=== PATIENT | female | born 1945 | race Caucasian/White ===

== ENCOUNTER 2018-06-23 13:19 | Inpatient (IN) ==
[2018-06-23] MEDS ORDERED: Ampicillin/Sulbactam Inj 1,500 MG in Sodium Chloride 0.9% Inj 100 ML IV.SIG ONE (15:32)
[2018-06-23] MEDS ORDERED: Tetanus/Diphtheria Toxoid Adult Vaccine Inj 0.5 ML Vial IM ONE (15:32)
--- NOTE | 2018-06-23 16:08 | ED ---
HPI General Chief Complaint: Animal Bite Stated Complaint: Animal Bite Complaint Time Seen by Provider: 06/23/18 15:31 Source: patient Mode of arrival: ambulatory Limitations: no limitations History of Present Illness MD complaint: Reports animal bite Onset (ago): day(s) (1) Animal: cat Description of animal: household pet Mechanism: bite Right: hand Pain description: Reports dull and constant Severity scale (1-10): 8 Context: Reports unprovoked Associated symptoms: Reports erythema and other (Inability to extend her fingers ); Denies fever and chills Treatments prior to arrival: Reports antibiotic ointment and other (Peroxide) Related Data Patient tetanus UTD: No Allergies Allergy/AdvReac Type Severity Reaction Status Date / Time adhesive Allergy Severe pt stated Unverified 02/02/17 19:02 she had redness and irritation with bandaids Sulfa (Sulfonamide Allergy Severe hives Unverified 02/02/17 19:02 Antibiotics) Review of Systems ROS: all other systems reviewed are negative [facility] Social History Social History Recent Travel in [facility] within the Last 8 Weeks: No Recent Out of Country Travel within the Last 8 Weeks: No Exam Const General: cooperative, healthy appearing and comfortable Orientation: alert, awake and oriented x3 HENMT Head: normal to inspection, normocephalic and atraumatic Eyes Alignment and Position: alignment normal Conjunctivae: conjunctivae normal Sclera: sclerae normal EOM: EOM intact bilaterally Neck Neck: normal visual inspection and full ROM Chest Chest: normal inspection of the chest and normal palpation of entire chest wall Resp Effort & Inspection: normal respiratory effort and able to speak in complete sentences Cardio Rate: regular rate Rhythm: regular rhythm Back/Spine/Pelvis Cervical Spine: cervical ROM normal Thoracic/Lumbar Spine: thoraco-lumbar ROM normal Skin General: erythema (Erythema on the dorsal aspect of the right hand ) Trauma: puncture (2 puncture wounds on the dorsal aspect of the right hand near the base of the right index finger) Neuro General: alert, awake, oriented x3, moves all extremities and CN's II-XI intact bilaterally Extrem Right upper extremity: hand Details: abnormal to inspection, normal capillary refill, neuromotor exam abnormal, tenderness, warmth, swelling, ecchymosis and puncture wound; no crepitus Psych Appearance: grossly normal Mental Status: mental status grossly normal Speech and Movement: speech and movement normal Mood: congruent mood Affect: normal affect Attitude: cooperative Thought Process: normal Thought Content: normal Judgment: judgment good Course Initial Documented Vital Signs Temperature 98.6 F 06/23/18 13:41 Pulse Rate 91 H 06/23/18 13:41 Respiratory Rate 17 06/23/18 13:41 Blood Pressure 147/71 H 06/23/18 13:41 Pulse Oximetry 99 06/23/18 13:41 Last Documented Vital Signs Temperature 98.6 F 06/23/18 13:41 Pulse Rate 91 H 06/23/18 13:41 Respiratory Rate 17 06/23/18 13:41 Blood Pressure 147/71 H 06/23/18 13:41 Pulse Oximetry 99 06/23/18 13:41 Medical Decision Making MDM Narrative Medical decision making narrative: This patient presents following a cat bite to her right hand. The Bite occurred about 2:30 PM. She started having pain, swelling, redness and warmth of her hand about 5 hours later. Her symptoms have been getting progressively worse since that time. On exam she has erythema, warmth, swelling and tenderness on the dorsal aspect of the right hand. There are 2 associated puncture wounds. She has difficulty extending her index finger. Her tetanus has been updated. She is being given a dose of IV Unasyn. I have consulted hand surgery and he plans to take her to the operating room for washout. Medical Screen Exam Complete: Yes Emergency Medical Condition: Yes Differential Diagnosis Differential Diagnosis: Differential diagnosis of animal bite includes but is not limited to wound, wound infection, retained foreign body, open fracture, sepsis, rabies. Lab Data Lab results reviewed: Yes I reviewed the patient's lab results. Result diagrams: 06/23/18 16:00 06/23/18 16:00 Lab Results 06/23/18 06/23/18 Range/Units 16:00 16:00 WBC 12.7 H (4.0-11.0) th/mm3 RBC 4.12 (4.00-5.30) mil/mm3 Hgb 13.3 (11.6-15.3) gm/dL Hct 38.0 (35.0-46.0) % MCV 92.1 (80.0-100.0) fL MCH 32.2 (27.0-34.0) pg MCHC 34.9 (32.0-36.0) % RDW 14.4 (11.6-17.2) % Plt Count 344 (150-450) th/mm3 MPV 7.8 (7.0-11.0) fL Neut % (Auto) 68.3 (16.0-70.0) % Lymph % (Auto) 20.4 (9.0-44.0) % [place] % (Auto) 9.9 H (0.0-8.0) % Eos % (Auto) 0.9 (0.0-4.0) % Baso % (Auto) 0.5 (0.0-2.0) % Neut # (Auto) 8.7 H (1.8-7.7) th/mm3 Lymph # (Auto) 2.6 (1.0-4.8) th/mm3 [place] # (Auto) 1.2 H (0.0-0.9) th/mm3 Eos # (Auto) 0.1 (0.0-0.4) th/mm3 Baso # (Auto) 0.1 (0.0-0.2) th/mm3 WBC Differential . Differential Comment Auto diff final Sodium 141 (136-145) meq/L Potassium 4.1 (3.5-5.1) meq/L Chloride 105 (98-107) meq/L Carbon Dioxide 29.9 (21.0-32.0) meq/L Anion Gap 6 (5-15) meq/L BUN 16 (7-18) mg/dL Creatinine 0.84 (0.50-1.00) mg/dL Estimated GFR 67 L (>89) mL/min Random Glucose 97 (74-106) mg/dL Calcium 8.6 (8.5-10.1) mg/dL Discharge Plan Discharge Disposition Patient Disposition: ED Admit(ED Internal Use Only) Discharge Order Discharge Orders: ED Use Only Admit Order (Routine); Ordered 06/23/18 Ordered By: Rose Marie Batista Discharge Details Diagnosis: Cellulitis, Cat bite Physicians Team ED Provider: Rose Marie Batista Primary Care Provider: Yolanda Lira Other Providers: Ja David Status ED Status: With Doctor
[2018-06-23 16:22] LABS: Baso # (Auto) 0.1 th/mm3 (0.0-0.2); Baso % (Auto) 0.5 % (0.0-2.0); Eos # (Auto) 0.1 th/mm3 (0.0-0.4); Eos % (Auto) 0.9 % (0.0-4.0); Hemoglobin 13.3 gm/dL (11.6-15.3); Lymph # (Auto) 2.6 th/mm3 (1.0-4.8); Lymph % (Auto) 20.4 % (9.0-44.0); Mean Corpuscular HGB Conc 34.9 % (32.0-36.0); Mean Corpuscular Hemoglobin 32.2 pg (27.0-34.0); Mean Corpuscular Volume 92.1 fL (80.0-100.0); Mean Platelet Volume 7.8 fL (7.0-11.0); Mono # (Auto) 1.2 th/mm3 (0.0-0.9); Mono % (Auto) 9.9 % (0.0-8.0); Neut # (Auto) 8.7 th/mm3 (1.8-7.7); Neut % (Auto) 68.3 % (16.0-70.0); Platelet Count 344 th/mm3 (150-450); Red Blood Count 4.12 mil/mm3 (4.00-5.30); Red Cell Distribution Width 14.4 % (11.6-17.2); White Blood Count 12.7 th/mm3 (4.0-11.0)
[2018-06-23 16:44] LABS: Calcium 8.6 mg/dL (8.5-10.1); Carbon Dioxide 29.9 meq/L (21.0-32.0); Potassium 4.1 meq/L (3.5-5.1)
--- NOTE | 2018-06-23 17:14 | MB ---
cc: Ja David MD DATE: 06/23/2018 REASON FOR CONSULTATION: Cat bite to right hand. HISTORY OF PRESENT ILLNESS: The patient is a 72-year-old right-hand dominant female who presented to the ED with complaints of cat bite to the dorsal aspect of the right hand yesterday. The patient states she was bitten by her own cat yesterday. She applied hydrogen peroxide. She presented to the ED with complaints of worsening symptoms involving the right hand with pain, swelling, and redness. The patient also complains of difficulty with range of motion of the fingers. Denies any fever. Denies any drainage. PAST MEDICAL AND SURGICAL HISTORY: Reviewed. PHYSICAL EXAMINATION: GENERAL: The patient is alert and oriented x3. EXTREMITIES: Examination of right hand reveals swelling over the dorsal aspect of the hand with erythema extending to the distal aspect of the wrist. There are 2 bite wounds over the dorsal aspect of the hand, corresponding to the index finger extensor tendon and the first webspace. Tenderness is noted over the region. No drainage noted over the region. Scabbing of the wound noted. Range of motion of the index finger is limited and painful. Finger extension of the middle, ring, and little fingers is also associated with pain. She is unable to make a full fist. Wrist range of motion is limited at terminal degrees. She has intact sensation distally. She has intact distal circulation. LABORATORY DATA: Her lab work was reviewed. She has white count of 12.7, neutrophil shift of 68%. ASSESSMENT: This is a 72-year-old female with a cat bite to the dorsal aspect of the right hand with cellulitis. PLAN: Will be to open up the wounds at bedside. The part was sterilely prepped and draped, and the bite wounds were opened up and washed with hydrogen peroxide, normal saline. Dry dressing was applied. The patient will be admitted for IV antibiotics, and hand surgery will follow up tomorrow. The patient was informed that if there is no improvement in symptoms, she will be a candidate for a formal incision and drainage in the OR setting. Ja David MD SE/olivia , 04:41 PM , 04:49 PM
[2018-06-23] MEDS ORDERED: Bisacodyl 10 MG Supp RECTAL PRN (17:34)
[2018-06-23] MEDS ORDERED: Acetaminophen 325 MG Tablet PO PRN (17:34)
[2018-06-23] MEDS: Ampicillin/Sulbactam Inj 3 GM in Sodium Chloride 0.9% Inj 100 ML IV.SIG SCH (23:03)
--- NOTE | 2018-06-24 04:35 | P.HPIM ---
History of Present Illness Service: [facility] Primary Care Physician: Yolanda Lira Chief Complaint: Cat bite History of Present Illness: 72-year-old female with a history of CAD GERD and depression presented to the ED after having reported a Bite to her right hand yesterday. She states she was bitten by her cat yesterday states the pain prior to coming in was 8/10, constant, dull, ache, worse with movement with radiation up her hand and unable to move her fingers. She states prior to arrival she did put an antibiotic ointment on and peroxide.. She denies any chest pain, fever, chills, shortness of breath. Patient was seen by hand surgery in the ED who did an I&D at the bedside. Wound was opened up and washed with hydrogen peroxide and normal saline and a dry dressing was applied. She states since then she can move her fingers more with less pain. Per hand surgery... If symptoms do not improve patient will most likely go to the OR for a formal I&D. Inpatient Certification Inpatient Certification: I certify that the inpatient services were ordered in accordance with Medicare regulations governing the order. This includes certification that hospital inpatient services are reasonable and necessary and in the case of services not specified as inpatient-only under 42 CFR 419.22(n), that they are appropriately provided as inpatient services in accordance to with the 2-midnight benchmark under 43 CFR 412.3(e) Estimated Total Length of Stay (Days): 3 Plans for Post Hospital Care: Home [facility] Medical History Medical History FHx: cholecystectomy (Acute) History of hysterectomy (Acute) Hyperlipidemia (Acute) Hypertension (Acute) Surgical History Surgical History Hx of tonsillectomy (Acute) Family History Family History Father Heart disease Social History Social History Substance History: No History of Abuse Second Hand Smoke Exposure: No Smoking Status: Never smoker How Often Do You Have a Drink Containing Alcohol: Monthly or less Recent Travel in [facility] within the Last 8 Weeks: No Recent Out of Country Travel within the Last 8 Weeks: No Immunization History Tetanus Immunization: Unsure Medications and Allergies Allergies Allergy/AdvReac Type Severity Reaction Status Date / Time adhesive Allergy Severe pt stated Verified 06/23/18 18:26 she had redness and irritation with bandaids Sulfa (Sulfonamide Allergy Severe hives Verified 06/23/18 18:26 Antibiotics) Home Medications Medication Instructions Recorded Confirmed Type amlodipine 5 mg PO DAILY 06/23/18 06/23/18 History atorvastatin 40 mg PO QPM 06/23/18 06/23/18 History bupropion HCl 150 mg PO QAM 06/23/18 06/23/18 History buspirone 10 mg PO BID 06/23/18 06/23/18 History clopidogrel 75 mg PO DAILY 06/23/18 06/23/18 History pantoprazole 40 mg PO DAILY 06/23/18 06/23/18 History Active Medications: Active Medications Acetaminophen (Tylenol) 650 mg PO Q4H PRN PRN Reason: Headache, fever, pain 1-4 Hydrocodone Bitart/Acetaminophen ([place] 5/325) 1 tab PO Q4H PRN PRN Reason: PAIN SCALE 1 TO 10 Last Admin: 06/23/18 21:11 Dose: 1 tab Al Hydroxide/Mg Hydroxide (Milk Of Magnesia Liq) 30 ml PO Q12H PRN PRN Reason: Mild Constipation Bisacodyl (Dulcolax Supp) 10 mg RECTAL DAILY PRN PRN Reason: SEVERE CONSITIPATION Ampicillin Sodium/Sulbactam (Sodium 3 gm/ Sodium Chloride) 100 mls @ 200 mls/ hr IV.SIG Q6H [facility] Last Infusion: 06/23/18 23:33 Dose: Infused Lactulose (Lactulose Liq) 30 ml PO DAILY PRN PRN Reason: SEVERE CONSITIPATION Ondansetron HCl (Zofran Inj) 4 mg IV.PUSH Q6H PRN PRN Reason: NAUSEA OR VOMITING Sennosides (Senokot) 17.2 mg PO Q12H PRN PRN Reason: Moderate Constipation Sodium Chloride (Ns Flush) 2 ml IV.FLUSH BID [facility] Last Admin: 06/23/18 23:04 Dose: 2 ml Sodium Chloride (Ns Flush) 2 ml IV.FLUSH PRN PRN PRN Reason: FLUSH AFTER USING IV ACCESS Physical Exam Vital signs: Last Vital Signs Temp 98.3 F 06/24/18 00:00 Pulse 76 06/24/18 00:00 Resp 18 06/24/18 00:00 BP 101/55 L 06/24/18 00:00 Pulse Ox 94 L 06/24/18 00:00 Intake & Output 06/21/18 06/22/18 06/23/18 06/24/18 06:59 06:59 06:59 06:59 Intake Total 100 / 100 Balance 100 / 100 Weight 53.5 kg Narrative: GENERAL: Well-nourished patient in no acute distress SKIN: Warm and dry. erythema to dorsal of right hand, minimal drainage EYES: No scleral icterus. No injection or drainage. NECK: Supple, trachea midline. No JVD or lymphadenopathy. CARDIOVASCULAR: Regular rate and rhythm without murmurs, gallops, or rubs. RESPIRATORY: Breath sounds equal bilaterally. No accessory muscle use. GASTROINTESTINAL: Abdomen soft, non-tender, nondistended. MUSCULOSKELETAL: No cyanosis, or edema. Results Labs CBC & Chem 7: 06/23/18 16:00 06/23/18 16:00 Caprini VTE Risk Assessment Caprini VTE Risk Assessment: No/Low Risk (score <= 1) Caprini Risk Assessment Model: Point Value = 1 Point Value = 2 Point Value = 3 Point Value = 5 Age 41-60 Minor surgery BMI > 25 kg/m2 Swollen legs Varicose veins or History of unexplained or recurrent spontaneous Oral contraceptives or hormone replacement Sepsis (< 1 month) Serious lung disease, including pneumonia (< 1 month) Abnormal pulmonary function Acute myocardial infarction Congestive heart failure (< 1 month) History of inflammatory bowel disease Medical patient at bed rest Age 61-74 Arthroscopic surgery Major open surgery (> 45 min) Laparoscopic surgery (> 45 min) Malignancy Confined to bed (> 72 hours) Immobilizing plaster cast Central venous access Age >= 75 History of VTE Family history of VTE Factor V Leiden Prothrombin [id number] Lupus anticoagulant Anticardiolipin antibodies Elevated serum homocysteine Heparin-induced thrombocytopenia Other congenital or acquired thrombophilia Stroke (< 1 month) Elective arthroplasty Hip, pelvis, or leg fracture Acute spinal cord injury (< 1 month) Prophylaxis Regimen: Total Risk Factor Score Risk Level Prophylaxis Regimen 0-1 Low Early ambulation 2 Moderate Order ONE of the following: *Sequential Compression Device (SCD) *Heparin 5000 units SQ BID 3-4 Higher Order ONE of the following medications: *Heparin 5000 units SQ TID *Enoxaparin/Lovenox 40 mg SQ daily (WT < 150 kg, CrCl > 30 mL/min) *Enoxaparin/Lovenox 30 mg SQ daily (WT < 150 kg, CrCl > 10-29 mL/min) *Enoxaparin/Lovenox 30 mg SQ BID (WT < 150 kg, CrCl > 30 mL/min) AND/OR *Sequential Compression Device (SCD) 5 or more Highest Order ONE of the following medications: *Heparin 5000 units SQ TID (Preferred with Epidurals) *Enoxaparin/Lovenox 40 mg SQ daily (WT < 150 kg, CrCl > 30 mL/min) *Enoxaparin/Lovenox 30 mg SQ daily (WT < 150 kg, CrCl > 10-29 mL/min) *Enoxaparin/Lovenox 30 mg SQ BID (WT < 150 kg, CrCl > 30 mL/min) AND *Sequential Compression Device (SCD) Assessment and Plan Plan 72-year-old female with a history of hypertension, hyperlipidemia, CAD, GERD, and depression presented to the ED after having reported a Bite to her right hand yesterday. Cellulitis, due to a Cat bite, right hand -IV antibiotics Unasyn -Pain management with p.o. [place] -Hand surgery is following -Blood cultures pending Hypertension, chronic -Resume home medications amlodipine, monitor vitals Other chronic medical conditions Hyperlipidemia, depression and gerd -Resume home medications -Cardiac diet DVT prophylaxis: SCDs H&P: Quality VTE Deep Vein Thrombosis/Pulmonary Embolism Present on Admission: No
[2018-06-24] MEDS: Ampicillin/Sulbactam Inj 3 GM in Sodium Chloride 0.9% Inj 100 ML IV.SIG SCH ×4 (05:03→23:07)
[2018-06-24 06:03] LABS: Baso # (Auto) 0.1 th/mm3 (0.0-0.2); Baso % (Auto) 0.6 % (0.0-2.0); Eos # (Auto) 0.2 th/mm3 (0.0-0.4); Eos % (Auto) 1.9 % (0.0-4.0); Hematocrit 36.4 % (35.0-46.0); Hemoglobin 12.2 gm/dL (11.6-15.3); Lymph # (Auto) 3.1 th/mm3 (1.0-4.8); Lymph % (Auto) 31.4 % (9.0-44.0); Mean Corpuscular HGB Conc 33.4 % (32.0-36.0); Mean Corpuscular Hemoglobin 30.8 pg (27.0-34.0); Mean Corpuscular Volume 92.1 fL (80.0-100.0); Mono # (Auto) 0.8 th/mm3 (0.0-0.9); Neut # (Auto) 5.8 th/mm3 (1.8-7.7); Neut % (Auto) 58.1 % (16.0-70.0); Platelet Count 341 th/mm3 (150-450); Red Blood Count 3.96 mil/mm3 (4.00-5.30); Red Cell Distribution Width 14.2 % (11.6-17.2)
[2018-06-24 06:23] LABS: Calcium 8.5 mg/dL (8.5-10.1); Carbon Dioxide 28.7 meq/L (21.0-32.0); Potassium 4.1 meq/L (3.5-5.1)
[2018-06-24] MEDS: amLODIPine 5 MG Tablet PO SCH (09:05)
[2018-06-24] MEDS: buPROPion 150 MG 12 HR Tablet PO SCH (09:06)
--- NOTE | 2018-06-24 12:15 | P.PNIM ---
Subjective Interval history: Follow-up visit cat bite, cellulitis Right Hand. Patient seen and examined today. at bedside. Reports she is doing okay. Denies pain and discomfort. Denies SOB/ dyspnea. Denies chest pain, palpitations, headaches, dizziness. Denies fevers, chills, n/v/d. Denies dysuria. Denies any paresthesia. Physical Exam Vital signs: Vital Signs 06/23/18 13:41 06/23/18 18:35 06/23/18 20:00 Temperature 98.6 F 97.9 F Pulse Rate 91 H 82 79 Respiratory Rate 17 16 18 Blood Pressure 147/71 H 144/77 H 128/74 Pulse Oximetry 99 98 95 06/24/18 00:00 06/24/18 08:00 Temperature 98.3 F 98.5 F Pulse Rate 76 76 Respiratory Rate 18 17 Blood Pressure 101/55 L 123/67 Pulse Oximetry 94 L 95 Intake & Output 06/23/18 06/24/18 06/24/18 18:59 06:59 18:59 Intake Total 200 / 200 100 / 100 Balance 200 / 200 100 / 100 Weight 51.71 kg 52.6 kg Intake: IV 200 / 200 100 / 100 Unasyn Inj 3 GM In NS Inj 100 200 / 200 ML @ 200 mls/hr IV.SIG Q6H [facility] Rx#:[id number] Other: # Voids 3 Date of Last Bowel Movement 06/22/18 Weight On Admission 53.5 kg Results - Labs CBC & Chem 7: 06/24/18 05:01 06/24/18 05:01 Laboratory Results - last 24 hr 06/23/18 06/23/18 06/24/18 16:00 16:00 05:01 WBC 12.7 H 10.0 RBC 4.12 3.96 L Hgb 13.3 12.2 Hct 38.0 36.4 MCV 92.1 92.1 MCH 32.2 30.8 MCHC 34.9 33.4 RDW 14.4 14.2 Plt Count 344 341 MPV 7.8 8.0 Neut % (Auto) 68.3 58.1 Lymph % (Auto) 20.4 31.4 [place] % (Auto) 9.9 H 8.0 Eos % (Auto) 0.9 1.9 Baso % (Auto) 0.5 0.6 Neut # (Auto) 8.7 H 5.8 Lymph # (Auto) 2.6 3.1 [place] # (Auto) 1.2 H 0.8 Eos # (Auto) 0.1 0.2 Baso # (Auto) 0.1 0.1 WBC Differential . . Differential Comment Auto diff final Auto diff final Sodium 141 Potassium 4.1 Chloride 105 Carbon Dioxide 29.9 Anion Gap 6 BUN 16 Creatinine 0.84 Estimated GFR 67 L Random Glucose 97 Calcium 8.6 06/24/18 05:01 WBC RBC Hgb Hct MCV MCH MCHC RDW Plt Count MPV Neut % (Auto) Lymph % (Auto) [place] % (Auto) Eos % (Auto) Baso % (Auto) Neut # (Auto) Lymph # (Auto) [place] # (Auto) Eos # (Auto) Baso # (Auto) WBC Differential Differential Comment Sodium 141 Potassium 4.1 Chloride 106 Carbon Dioxide 28.7 Anion Gap 6 BUN 19 H Creatinine 0.79 Estimated GFR 72 L Random Glucose 96 Calcium 8.5 Microbiology 06/23/18 15:55 Blood - Peripheral Aerobic Blood Culture - Preliminary No growth in 1 day 06/23/18 15:55 Blood - Peripheral Anaerobic Blood Culture - Preliminary No growth in 1 day 06/23/18 16:00 Blood - Peripheral Aerobic Blood Culture - Preliminary No growth in 1 day 06/23/18 16:00 Blood - Peripheral Anaerobic Blood Culture - Preliminary No growth in 1 day Assessment and Plan - Plan 72-year-old female with a history of hypertension, hyperlipidemia, CAD, GERD, and depression presented to the ED after having reported a Bite to her right hand yesterday. Cellulitis, due to a Cat bite, right hand -IV antibiotics Unasyn -Pain management with p.o. [place] -Hand surgery is following, I&D done yesterday. Dry dsg applied. Of note, if no improvement, will take to OR -White count trending down. Blood cultures no growth to date preliminary -Patient reports pain is manageable, no fevers, no paresthesias, not swelling Hypertension, chronic -Resume home medications amlodipine, monitor vitals Other chronic medical conditions Hyperlipidemia, depression and gerd -Resume home medications -Cardiac diet DVT prophylaxis SCDs Discussed Condition With: Patient, nursing Discharge Planning: Plan to DC home possibly 1-2 days when clinically improved. Hand surgery clearance
--- NOTE | 2018-06-24 17:54 | P.PN ---
Subjective Interval history: complains of mild pain which is getting better able to move the fingers better no fever complaint with limb elevation Physical Exam Vital signs: Vital Signs 06/23/18 18:35 06/23/18 20:00 06/24/18 00:00 Temperature 97.9 F 98.3 F Pulse Rate 82 79 76 Respiratory Rate 16 18 18 Blood Pressure 144/77 H 128/74 101/55 L Pulse Oximetry 98 95 94 L 06/24/18 08:00 06/24/18 12:00 06/24/18 16:00 Temperature 98.5 F 97.9 F 98.1 F Pulse Rate 76 74 76 Respiratory Rate 17 17 17 Blood Pressure 123/67 120/69 111/56 L Pulse Oximetry 95 96 97 Intake & Output 06/23/18 06/24/18 06/24/18 18:59 06:59 18:59 Intake Total 200 / 200 300 / 300 Balance 200 / 200 300 / 300 Weight 51.71 kg 52.6 kg Intake: IV 200 / 200 300 / 300 Unasyn Inj 3 GM In NS Inj 100 200 / 200 200 / 200 ML @ 200 mls/hr IV.SIG Q6H [facility] Rx#:[id number] Other: # Voids 3 Date of Last Bowel Movement 06/22/18 06/22/18 Weight On Admission 53.5 kg Narrative: exam right hand: intact dressing decreased swelling over the dorsal aspect of the hand erythema has progressed to distal forerarm no fluctuant mass full extension of the fingers terminal degrees are painful wrist extension and flexion full intact sensation distally wbc count: normal Results - Labs CBC & Chem 7: 06/24/18 05:01 06/24/18 05:01 Laboratory Results - last 24 hr 06/24/18 06/24/18 05:01 05:01 WBC 10.0 RBC 3.96 L Hgb 12.2 Hct 36.4 MCV 92.1 MCH 30.8 MCHC 33.4 RDW 14.2 Plt Count 341 MPV 8.0 Neut % (Auto) 58.1 Lymph % (Auto) 31.4 [place] % (Auto) 8.0 Eos % (Auto) 1.9 Baso % (Auto) 0.6 Neut # (Auto) 5.8 Lymph # (Auto) 3.1 [place] # (Auto) 0.8 Eos # (Auto) 0.2 Baso # (Auto) 0.1 WBC Differential . Differential Comment Auto diff final Sodium 141 Potassium 4.1 Chloride 106 Carbon Dioxide 28.7 Anion Gap 6 BUN 19 H Creatinine 0.79 Estimated GFR 72 L Random Glucose 96 Calcium 8.5 Microbiology 06/23/18 15:55 Blood - Peripheral Aerobic Blood Culture - Preliminary No growth in 1 day 06/23/18 15:55 Blood - Peripheral Anaerobic Blood Culture - Preliminary No growth in 1 day 06/23/18 16:00 Blood - Peripheral Aerobic Blood Culture - Preliminary No growth in 1 day 06/23/18 16:00 Blood - Peripheral Anaerobic Blood Culture - Preliminary No growth in 1 day Assessment and Plan - Assessment (1) Cat bite Code(s): W55.01XA - Bitten by cat, initial encounter Status: Acute - Plan 72 year old female with cat bite right hand Plan: patient has decreased pain, able to move fingers better, decreased swelling but worsening erythema. continue with IV antibiotics limb elevation and range of motion exercises hand surgery will follow (1) Cat bite Qualifiers: Encounter type: initial encounter Qualified Code(s): W55.01XA - Bitten by cat , initial encounter
[2018-06-25] MEDS: Ampicillin/Sulbactam Inj 3 GM in Sodium Chloride 0.9% Inj 100 ML IV.SIG SCH ×2 (06:34→11:16)
[2018-06-25] MEDS: amLODIPine 5 MG Tablet PO SCH (08:46)
[2018-06-25] MEDS: buPROPion 150 MG 12 HR Tablet PO SCH (08:47)
--- NOTE | 2018-06-25 11:03 | P.PNIM ---
Subjective Interval history: Follow-up visit Bite, cellulitis of the right hand. Patient seen and examined today. Reports she is doing pretty well. States that right hand has improved, no edema, no erythema. She is able to move her right hand better compared to yesterday and previous day. Denies pain and discomfort. Denies SOB/ dyspnea. Denies chest pain, palpitations, headaches, dizziness. Denies fevers, chills, n/ v/d. Denies hematuria, dysuria. Physical Exam Vital signs: Vital Signs 06/24/18 12:00 06/24/18 16:00 06/24/18 20:00 Temperature 97.9 F 98.1 F 98.0 F Pulse Rate 74 76 76 Respiratory Rate 17 17 18 Blood Pressure 120/69 111/56 L 116/56 L Pulse Oximetry 96 97 97 06/25/18 00:00 06/25/18 08:00 Temperature 97.7 F 97.9 F Pulse Rate 82 76 Respiratory Rate 18 16 Blood Pressure 122/62 98/54 L Pulse Oximetry 95 96 Intake & Output 06/24/18 06/25/18 06/25/18 18:59 06:59 18:59 Intake Total 2100 / 2100 100 / 100 100 / 100 Balance 2100 / 2100 100 / 100 100 / 100 Weight 53 kg Intake: IV 300 / 300 100 / 100 100 / 100 Unasyn Inj 3 GM In NS Inj 100 200 / 200 100 / 100 100 / 100 ML @ 200 mls/hr IV.SIG Q6H JAIMIE Rx#:[id number] Oral 1800 / 1800 Other: # Voids 3 3 Date of Last Bowel Movement 06/22/18 06/23/18 06/21/18 Narrative: GENERAL: This is a pleasant well-nourished, well-developed patient, in no apparent distress. SKIN: Warm and dry. HEENT: Normocephalic. Pupils equal round and reactive. Nose without bleeding. Airway patent. NECK: Trachea midline. CARDIOVASCULAR: Regular rate and rhythm without murmurs, gallops, or rubs. RESPIRATORY: Clear to auscultation. Breath sounds equal bilaterally. No wheezes , rales, or rhonchi. GASTROINTESTINAL: Abdomen soft, non-tender, nondistended. Bowel Sounds normoactive x4. MUSCULOSKELETAL: Extremities without clubbing, cyanosis. Right hand no edema, no erythema, bite chavez scarring and closed. NEUROLOGICAL: Awake and alert. Oriented to time, place, person. No focal neuro deficit. Moves all extremities. Normal speech. Results - Labs CBC & Chem 7: 06/24/18 05:01 06/24/18 05:01 Microbiology 06/23/18 15:55 Blood - Peripheral Aerobic Blood Culture - Preliminary No growth in 2 days 06/23/18 15:55 Blood - Peripheral Anaerobic Blood Culture - Preliminary No growth in 2 days 06/23/18 16:00 Blood - Peripheral Aerobic Blood Culture - Preliminary No growth in 2 days 06/23/18 16:00 Blood - Peripheral Anaerobic Blood Culture - Preliminary No growth in 2 days Assessment and Plan - Plan 72-year-old female with a history of hypertension, hyperlipidemia, CAD, GERD, and depression presented to the ED after having reported a Bite to her right hand yesterday. Cellulitis, due to a Cat bite, right hand -IV antibiotics Unasyn, will switch over to Augmentin p.o. when discharged. -Pain management with p.o. [place] -Hand surgery is following, I&D done. Dry dsg applied. Improved. -White count trending down. Blood cultures no growth to date preliminary -Patient reports pain is manageable, no fevers, no paresthesias, no swelling , no erythema Hypertension, chronic -Resume home medications amlodipine, monitor vitals Other chronic medical conditions Hyperlipidemia, depression and gerd -Resume home medications -Cardiac diet DVT prophylaxis SCDs Code Status: Full code Discussed Condition With: Patient, nursing Discharge Planning: Plan to DC home today
--- NOTE | 2018-06-25 13:11 | P.PN ---
Subjective Interval history: mild pain feeling lot better able to move fingers better no fever or numbness Physical Exam Vital signs: Vital Signs 06/24/18 16:00 06/24/18 20:00 06/25/18 00:00 Temperature 98.1 F 98.0 F 97.7 F Pulse Rate 76 76 82 Respiratory Rate 17 18 18 Blood Pressure 111/56 L 116/56 L 122/62 Pulse Oximetry 97 97 95 06/25/18 08:00 Temperature 97.9 F Pulse Rate 76 Respiratory Rate 16 Blood Pressure 98/54 L Pulse Oximetry 96 Intake & Output 06/24/18 06/25/18 06/25/18 18:59 06:59 18:59 Intake Total 2100 / 2100 100 / 100 200 / 200 Balance 2100 / 2100 100 / 100 200 / 200 Weight 53 kg Intake: IV 300 / 300 100 / 100 200 / 200 Unasyn Inj 3 GM In NS Inj 100 200 / 200 100 / 100 200 / 200 ML @ 200 mls/hr IV.SIG Q6H JAIMIE Rx#:[id number] Oral 1800 / 1800 Other: # Voids 3 3 Date of Last Bowel Movement 06/22/18 06/23/18 06/21/18 Narrative: right hand: intact dressing no swelling or erythema able to make a full fist full extension of the fingers intact sensation distally wbc count: normal Results - Labs CBC & Chem 7: 06/24/18 05:01 06/24/18 05:01 Microbiology 06/23/18 15:55 Blood - Peripheral Aerobic Blood Culture - Preliminary No growth in 2 days 06/23/18 15:55 Blood - Peripheral Anaerobic Blood Culture - Preliminary No growth in 2 days 06/23/18 16:00 Blood - Peripheral Aerobic Blood Culture - Preliminary No growth in 2 days 06/23/18 16:00 Blood - Peripheral Anaerobic Blood Culture - Preliminary No growth in 2 days Assessment and Plan - Assessment (1) Cat bite Code(s): W55.01XA - Bitten by cat, initial encounter Status: Acute - Plan 72 year old female with cat bite right hand Plan: patient has very minimal pain, able to move fingers better, no swelling or erythema cleared for discharge on PO antibiotics augmentin limb elevation and range of motion exercises follow up in office in one week time (1) Cat bite Qualifiers: Encounter type: initial encounter Qualified Code(s): W55.01XA - Bitten by cat , initial encounter
[2018-06-25 13:17] VITALS: BP 124/57; PULSE 71; RESP 18; TEMP 97.6; O2SAT 94
--- NOTE | 2018-06-25 13:55 | P.DS ---
Date of admission: 06/23/18 17:52 Primary care physician: Yolanda Lira Attending physician on discharge: Cosmo Fisher Anticipated date of discharge: 06/25/18 Brief History from admission: 72-year-old female with a history of CAD GERD and depression presented to the ED after having reported a Bite to her right hand yesterday. She states she was bitten by her cat yesterday states the pain prior to coming in was 8/10, constant, dull, ache, worse with movement with radiation up her hand and unable to move her fingers. She states prior to arrival she did put an antibiotic ointment on and peroxide.. She denies any chest pain, fever, chills, shortness of breath. Patient was seen by hand surgery in the ED who did an I&D at the bedside. Wound was opened up and washed with hydrogen peroxide and normal saline and a dry dressing was applied. She states since then she can move her fingers more with less pain. Per hand surgery... If symptoms do not improve patient will most likely go to the OR for a formal I&D. Patient update on day of discharge: Follow-up visit Bite, cellulitis of the right hand. Patient seen and examined today. Reports she is doing pretty well. States that right hand has improved, no edema, no erythema. She is able to move her right hand better compared to yesterday and previous day. Denies pain and discomfort. Denies SOB/ dyspnea. Denies chest pain, palpitations, headaches, dizziness. Denies fevers, chills, n/ v/d. Denies hematuria, dysuria. DS: Diagnosis - Discharge Diagnosis (1) Cellulitis Status: Acute (2) Cat bite Status: Acute DS: Summary Hospital Course: Patient is 72-year-old female with past medical history of HTN, HLD, CAD, GERD, depression who came into the ER after having been reported a bite to her right hand by her cat. Patient found to have cellulitis of the right hand secondary to cat bite. IV antibiotics Unasyn has been given to the patient. Pain management with p.o. [place]. Hand surgery has followed the patient and I&D was done at the bedside during admission. White count has trended down. Blood cultures no growth to date. Patient reports improved pain and able to move her hands better. No fevers, no paresthesias, no swelling, no erythema. She has chronic hypertension, hyperlipidemia, CAD wherein she continued to take her home medications. Patient was cleared by hand surgeon with a follow-up visit 1 week in his office. Patient has met maximal benefits of hospitalization. Clinically stable for discharge. Wound care teaching provided. Verbalized understanding. - Time Spent with Patient Total time spent providing and/or coordinating discharge services: Less than 30 minutes - Quality: VTE Deep Vein Thrombosis/Pulmonary Embolism Present on Admission: No Exam Vital signs: Vital Signs 06/24/18 16:00 06/24/18 20:00 06/25/18 00:00 Temperature 98.1 F 98.0 F 97.7 F Pulse Rate 76 76 82 Respiratory Rate 17 18 18 Blood Pressure 111/56 L 116/56 L 122/62 Pulse Oximetry 97 97 95 06/25/18 08:00 06/25/18 12:00 Temperature 97.9 F 97.6 F Pulse Rate 76 71 Respiratory Rate 16 18 Blood Pressure 98/54 L 124/57 L Pulse Oximetry 96 94 L Intake & Output 06/24/18 06/25/18 06/25/18 18:59 06:59 18:59 Intake Total 2100 / 2100 100 / 100 200 / 200 Balance 2100 / 2100 100 / 100 200 / 200 Weight 53 kg Intake: IV 300 / 300 100 / 100 200 / 200 Unasyn Inj 3 GM In NS Inj 100 200 / 200 100 / 100 200 / 200 ML @ 200 mls/hr IV.SIG Q6H JAIMIE Rx#:[id number] Oral 1800 / 1800 Other: # Voids 3 3 Date of Last Bowel Movement 06/22/18 06/23/18 06/21/18 Narrative: GENERAL: This is a pleasant well-nourished, well-developed patient, in no apparent distress. SKIN: Warm and dry. HEENT: Normocephalic. Pupils equal round and reactive. Nose without bleeding. Airway patent. NECK: Trachea midline. CARDIOVASCULAR: Regular rate and rhythm without murmurs, gallops, or rubs. RESPIRATORY: Clear to auscultation. Breath sounds equal bilaterally. No wheezes , rales, or rhonchi. GASTROINTESTINAL: Abdomen soft, non-tender, nondistended. Bowel Sounds normoactive x4. MUSCULOSKELETAL: Extremities without clubbing, cyanosis. Right hand no edema, no erythema, bite chavez scarring and closed. NEUROLOGICAL: Awake and alert. Oriented to time, place, person. No focal neuro deficit. Moves all extremities. Normal speech. Results Procedures completed during hospitalization: S/P I & D at the bedside, 06/23/18 Labs on day of discharge: Preliminary micro results at discharge 06/23/18 15:55 Aerobic Blood Culture - Preliminary Blood - Peripheral No growth in 2 days Anaerobic Blood Culture - Preliminary No growth in 2 days 06/23/18 16:00 Aerobic Blood Culture - Preliminary Blood - Peripheral No growth in 2 days Anaerobic Blood Culture - Preliminary No growth in 2 days Discharge Plan - Discharge Disposition Patient Disposition: Discharge Home - Discharge Condition Condition: Stable - Discharge Order Discharge Orders: Discharge Order (Routine); Ordered 06/25/18 Ordered By: Adwoa Walker - Physicians Team Primary Care Provider: Yolanda Lira Attending Provider: Cosmo Fisher Other Providers: Ja David MD ; Jordan Ortega
== END 2018-06-25 15:10 | disposition home or self-care (01) | DRG 603 ==
LOC: NEPE 13:19 → NEDA 17:52 → N07 18:55
PROVIDERS: ADMIT Hospitalist; ATTEND Hospitalist
CPT/HCPCS: 80048; 85025; 87040; 90471; 90702; 90714; 90718; 90765; 96365; 99285; J0295